=== PATIENT | male | born 1975 | race African-American/Black ===

== ENCOUNTER 2023-06-03 11:35 | Inpatient (IN) | payer MEDICAID ==
[~2023-06-03] VITALS: Ht 167.6 cm; Wt 82.0 kg
[2023-06-03 13:42] LABS: BASOPHILS % 0.7 % (0.0-2.0); HEMATOCRIT. 45.7 % (42.0-52.0); HEMOGLOBIN. 15.6 g/dL (14.0-18.0); LYMPHOCYTES % 28.3 % (20.0-50.0); MEAN CORPUSCULAR HEMOGLOBIN 30.6 pg (28.0-32.0); MEAN CORPUSCULAR HGB CONC 34.1 g/dL (31.0-37.0); MEAN CORPUSCULAR VOLUME 89.9 fL (80.0-94.0); MEAN PLATELET VOLUME 9.2 fl (7.4-10.4); MONOCYTES % 6.4 % (2.0-8.0); NEUTROPHILS % 61.6 % (40.0-76.0); PLATELET 284 x1000/uL (130-400); RED BLOOD CELL COUNT 5.08 mill/uL (4.7-6.1); RED CELL DISTRIBUTION WIDTH 13.1 % (11.6-14.6)
[2023-06-03 13:49] LABS: CALCIUM 9.5 mg/dL (8.7-10.4); CARBON DIOXIDE 30 mEq/L (21-32); CHLORIDE 105 mEq/L (98-107); CREATININE 0.7 mg/dL (0.6-1.3); GLUCOSE 92 mg/dL (70-105); POTASSIUM 4.1 mEq/L (3.5-5.1); SODIUM 140 mEq/L (136-145); UREA NITROGEN BLOOD 12 mg/dL (9-23)
[2023-06-03] MEDS: HEPARIN 5000 UNITS/ML VIAL IV NR (16:12)
[2023-06-03 16:23] LABS: T4 FREE 1.02 ng/dL (0.89-1.76); THYROID STIMULATING HORMONE 0.94 uIU/mL (0.55-4.78)
[2023-06-03 16:37] LABS: D-DIMER < 0.19 mg/L FEU (<0.50); PROTHROMBIN TIME 11.4 sec (9.6-11.0)
[2023-06-03] MEDS: ATORVASTATIN CALCIUM 40MG TABLET PO SCH (21:56)
[2023-06-03] MEDS: IOHEXOL-350 100 ML BOTTLE ONE (23:46)
[2023-06-04 08:00] VITALS: BP 108/71; PULSE 68; RESP 18; TEMP 97.1
[2023-06-04] MEDS: ENOXAPARIN 40MG/0.4ML SYR SUBCUT SCH (09:00)
[2023-06-04] MEDS: ASPIRIN 325MG EC TABLET PO SCH (10:27)
[2023-06-04 12:00] VITALS: BP 95/59; PULSE 82; RESP 18; TEMP 97.7
[2023-06-04 12:26] LABS: EOSINOPHILS % 1.9 % (0.0-5.0); HEMATOCRIT. 45.6 % (42.0-52.0); HEMOGLOBIN. 15.5 g/dL (14.0-18.0); LYMPHOCYTES % 26.5 % (20.0-50.0); MEAN CORPUSCULAR HEMOGLOBIN 30.9 pg (28.0-32.0); MEAN CORPUSCULAR VOLUME 90.9 fL (80.0-94.0); MEAN PLATELET VOLUME 9.1 fl (7.4-10.4); MONOCYTES % 6.1 % (2.0-8.0); NEUTROPHILS % 64.5 % (40.0-76.0); PLATELET 278 x1000/uL (130-400); RED BLOOD CELL COUNT 5.01 mill/uL (4.7-6.1); RED CELL DISTRIBUTION WIDTH 12.8 % (11.6-14.6)
[2023-06-04 13:07] LABS: CALCIUM 9.4 mg/dL (8.7-10.4); CARBON DIOXIDE 29 mEq/L (21-32); CHLORIDE 105 mEq/L (98-107); CREATININE 0.7 mg/dL (0.6-1.3); GLUCOSE 89 mg/dL (70-105); POTASSIUM 3.5 mEq/L (3.5-5.1); SODIUM 140 mEq/L (136-145); UREA NITROGEN BLOOD 11 mg/dL (9-23)
[2023-06-04 16:00] VITALS: BP 93/61; PULSE 78; RESP 18; TEMP 97.3
[2023-06-04] MEDS: ACETAMINOPHEN 325MG TABLET PO PRN (17:20)
[2023-06-04 18:05] LABS: FOLIC ACID (FOLATE) SERUM 14.05 ng/mL (>5.38); VITAMIN B12 SERUM 564 pg/mL (211-911)
[2023-06-04 20:00] VITALS: BP 108/57; PULSE 68; RESP 18; TEMP 97
[2023-06-04] MEDS: GABAPENTIN 100MG CAPSULE PO SCH (22:00)
[2023-06-05 07:36] LABS: BASOPHILS % 0.5 % (0.0-2.0); EOSINOPHILS % 4.6 % (0.0-5.0); HEMATOCRIT. 44.3 % (42.0-52.0); HEMOGLOBIN. 15.5 g/dL (14.0-18.0); LYMPHOCYTES % 31.2 % (20.0-50.0); MEAN CORPUSCULAR HGB CONC 34.9 g/dL (31.0-37.0); MEAN PLATELET VOLUME 9.3 fl (7.4-10.4); MONOCYTES % 6.6 % (2.0-8.0); NEUTROPHILS % 57.1 % (40.0-76.0); PLATELET 279 x1000/uL (130-400); RED BLOOD CELL COUNT 4.98 mill/uL (4.7-6.1); WHITE BLOOD COUNT 6.6 x1000/uL (4.5-11.0)
[2023-06-05 07:50] LABS: CARBON DIOXIDE 27 mEq/L (21-32); CHLORIDE 105 mEq/L (98-107); CREATININE 0.7 mg/dL (0.6-1.3); GLUCOSE 87 mg/dL (70-105); POTASSIUM 3.6 mEq/L (3.5-5.1); SODIUM 139 mEq/L (136-145); UREA NITROGEN BLOOD 10 mg/dL (9-23)
[2023-06-05 08:00] VITALS: BP 109/73; PULSE 75; RESP 18; TEMP 97.6
[2023-06-05 12:00] VITALS: BP 108/70; PULSE 85; RESP 18; TEMP 97.9
[2023-06-05] MEDS ORDERED: LIP40 PO (13:58)
[2023-06-05] MEDS ORDERED: GABA-529 PO (13:58)
[2023-06-05] MEDS ORDERED: ASPI-1497 PO (13:58)
[2023-06-05 14:01] VITALS: BP 109/73; PULSE 75; TEMP 97.6; O2SAT 98
== END 2023-06-05 14:27 | disposition home health service (06) | DRG 48 ==
LOC: ER 11:35 → EDBEDREQ 13:08 → 4WST 14:44 → EDBEDREQSVC 14:48 → EDBEDREQ 14:48 → EDBEDREQTM 14:48 → EDBEDREQ 14:49 → EDBEDREQSVC 23:37
PROVIDERS: ADMIT Hospitalist; ATTEND Hospitalist
DX: E11.40 Type 2 diabetes mellitus with diabetic neuropathy, unspecified (principal); I69.351 Hemiplegia and hemiparesis following cerebral infarction affecting right dominant side; R47.01 Aphasia; I10 Essential (primary) hypertension; Z99.3 Dependence on wheelchair; Z87.891 Personal history of nicotine dependence; Z79.82 Long term (current) use of aspirin; E78.5 Hyperlipidemia, unspecified
CPT/HCPCS: 36415; 73706; 80048; 80061; 82607; 82746; 83036; 84439; 84443; 84550; 85025; 85379; 85651; 93971; 97162; 97166; 99285; J1644; J1650; Q9967